=== PATIENT | male | born 1990 | race African-American/Black ===

== ENCOUNTER 2018-06-13 14:18 | Emergency (ER) | payer MEDICAID ==
[~2018-06-13] VITALS: Ht 175.3 cm; Wt 65.8 kg
[2018-06-13 14:31] VITALS: BP 142/78
[2018-06-13 15:02] LABS: Urine Bacteria FEW /hpf (None Seen); Urine Blood Negative /uL (Negative); Urine Specific Gravity 1.002 (1.001-1.035); Urine WBC 10 /hpf (0 - 3)
== END 2018-06-13 16:08 | disposition home or self-care (01) ==
LOC: ER 14:18
DX: N39.0 Urinary tract infection, site not specified (principal)
CPT/HCPCS: 74176; 81001